=== PATIENT | female | born 1950 | race Caucasian/White ===

== ENCOUNTER 2016-11-07 10:27 | Outpatient (CLI) | payer MEDICARE ==
[2016-11-07 12:07] LABS: #Basophils 0.1 thou/uL (0.0-0.2); #Eosinphils 0.2 thou/uL (0.0-0.7); #Lymphocytes 2.6 thou/uL (1.20-3.40); #Monocytes 0.5 thou/uL (0.11-0.59); #Neutrophils 7.5 thou/uL (1.40-6.50); %Basophils 0.6 % (0.0-1.0); %Eosinophils 1.9 % (0.0-10.0); %Monocytes 4.9 % (0.0-10.0); Hematocrit 44.2 % (36.0-47.0); Red Blood Cell (RBC) Count 4.89 mill/uL (4.20-5.40); White Blood Cell (WBC) Count 10.9 thou/uL (4.8-10.8)
[2016-11-07 12:24] LABS: ALT (SGPT) 27 U/L (0-55); AST (SGOT) 22 U/L (5-34); Alkaline Phosphatase 112 U/L (40-150); Anion Gap 13 mmol/L (10-20); BUN (Urea Nitrogen) 14 mg/dL (9.8-20.1); Bilirubin, Total 0.5 mg/dL (0.2-1.2); Calc. Creatinine Clearance 0 mL/min (70-130); Carbon Dioxide 27 mmol/L (23-31); Chloride 107 mmol/L (98-107); Estimated GFR-MDRD 72; Globulin 3.4 g/dL (2.4-3.5); LDL Cholesterol, Calculated 122 mg/dL; Protein, Total 7.4 g/dL (5.8-8.1)
== END 2016-11-07 10:28 ==
LOC: HPCALD 10:27
PROVIDERS: ATTEND Family Medicine
DX: E78.2 Mixed hyperlipidemia (principal); E03.9 Hypothyroidism, unspecified; I10 Essential (primary) hypertension
CPT/HCPCS: 36415; 80053; 80061; 84443; 85025

== ENCOUNTER 2017-05-09 15:49 | Outpatient (CLI) | payer MEDICARE | END 2017-05-09 15:50 | disposition home or self-care (01) | LOC: HPCALD 15:49 | PROVIDERS: ATTEND Family Medicine | DX: E03.9 Hypothyroidism, unspecified (principal) | CPT/HCPCS: 36415; 84443 ==

== ENCOUNTER 2017-12-29 16:04 | Emergency (ER) | payer MEDICARE ==
[2017-12-29] MEDS ORDERED: methylPREDNISolone Sod Succ/PF 125 MG/2 ML VIAL ONE (16:16)
[2017-12-29 16:35] LABS: pH (venous) 7.23 (7.35-7.45)
[2017-12-29 16:36] LABS: Hemoglobin (Hb) 13.8 g/dL (11.7-16.1)
[2017-12-29 16:40] LABS: #Lymphocytes 1.8 thou/uL (1.20-3.40); #Monocytes 0.6 thou/uL (0.11-0.59); #Neutrophils 5.2 thou/uL (1.40-6.50); %Basophils 0.6 % (0.0-1.0); %Eosinophils 0.4 % (0.0-10.0); %Lymphocytes 23.3 % (21.0-51.0); %Monocytes 7.9 % (0.0-10.0); %Neutrophils 67.9 % (42.0-75.0); Mean Corpuscular Hemoglobin 27.6 pg (27.0-31.0); Mean Platelet Volume 5.6 fL (7.4-10.4); Platelet Count 238 thou/uL (130-400); RBC Distribution Width 15.2 % (11.5-14.5); Red Blood Cell (RBC) Count 4.71 mill/uL (4.20-5.40); White Blood Cell (WBC) Count 7.7 thou/uL (4.8-10.8)
--- NOTE | 2017-12-29 16:47 | RAD ---
PORTABLE CHEST: 12/29/17 An AP portable film at 1609 is compared with a 12/01/17 study. The heart size is unchanged. There is no congestive finding or large pleural effusion. The lungs are clear. The left lung base is difficult to evaluate well due to the portable technique and positioning of the patient. IMPRESSION: No definite acute findings. POS: HOME
[2017-12-29 16:53] LABS: ALT (SGPT) 23 U/L (8-55); AST (SGOT) 35 U/L (5-34); Albumin 3.6 g/dL (3.4-4.8); Alkaline Phosphatase 81 U/L (40-150); Anion Gap 14 mmol/L (10-20); BUN (Urea Nitrogen) 7 mg/dL (9.8-20.1); Bilirubin, Total 0.4 mg/dL (0.2-1.2); Calc. Creatinine Clearance 0 mL/min (70-130); Calcium 8.9 mg/dL (7.8-10.44); Carbon Dioxide 34 mmol/L (23-31); Chloride 99 mmol/L (98-107); Estimated GFR-MDRD 72; Glucose 123 mg/dL (80-115); Potassium 4.6 mmol/L (3.5-5.1); Protein, Total 7.6 g/dL (6.0-8.3); Sodium 142 mmol/L (136-145)
[2017-12-29 16:55] LABS: CKMB 3.7 ng/mL (0-6.6); Troponin I 0.014 ng/mL (< 0.028)
[2017-12-29] MEDS ORDERED: Acetaminophen 500 MG TAB ONE (17:26)
== END 2017-12-29 17:33 | disposition short-term general hospital (02) ==
LOC: BURERS 16:04
DX: J44.1 Chronic obstructive pulmonary disease with (acute) exacerbation (principal); M17.0 Bilateral primary osteoarthritis of knee; M16.10 Unilateral primary osteoarthritis, unspecified hip; I10 Essential (primary) hypertension; Z87.891 Personal history of nicotine dependence; Z79.891 Long term (current) use of opiate analgesic; Z79.899 Other long term (current) drug therapy
CPT/HCPCS: 51701; 71045; 80053; 82553; 82805; 83880; 84484; 85025; 87077; 87086; 87186; 93005; 96365; 96375; A4353; J1956; J2930; J7620

== ENCOUNTER 2018-09-19 13:31 | Inpatient (IN) | payer MEDICARE, MEDICAID ==
[2018-09-19] MEDS ORDERED: PROVENTIL INHALER 6.7 G (200 INHALATIONS) INH PRN (16:27)
[2018-09-19] MEDS ORDERED: Acetaminophen 325 MG TAB PO PRN (16:27)
[2018-09-19] MEDS: HYDROcodone/Acetaminophen 10/325 mg Tablet PO PRN ×2 (18:03→22:09)
[2018-09-19] MEDS ORDERED: Albuterol Sulfate 2.5 mg/3 ml Neb NEB SCH (19:00)
[2018-09-19] MEDS: Ipratropium Bromide 2.5 ml Neb NEB SCH (19:02)
[2018-09-19] MEDS: Mometasone/Formoterol 60 PUFF AER INH SCH (19:05)
[2018-09-19] MEDS: Loratadine 10 MG TAB PO SCH (21:18)
[2018-09-19] MEDS: Levothyroxine Sodium 100 MCG TAB PO SCH (21:18)
[2018-09-19] MEDS: Atorvastatin Calcium 10 MG TAB PO SCH (21:18)
[2018-09-19] MEDS: Aspirin 325 mg Enteric Coated Tablet PO SCH (21:19)
[2018-09-19] MEDS: Docusate 100 MG CAP PO SCH (21:19)
[2018-09-19] MEDS: Diabetic Tussin 200 MG/10 ML UDCUP PO SCH (21:19)
[2018-09-19] MEDS: Albuterol Sulfate 2.5 mg/3 ml Neb NEB SCH (21:20)
--- NOTE | 2018-09-19 23:13 | HP ---
CHIEF COMPLAINT: Status post left total hip arthroplasty with need for physical therapy. HISTORY OF PRESENT ILLNESS: A 67-year-old female had transitioned to our facility to participate with physical therapy status post admission at [facility] for elective left total hip arthroplasty via Dr. Mikal Joe; this procedure was performed on 09/17/2018. The patient is requiring assistance with transfers and has set orthopedic limitations and thus it was decided that she would be better transitioning to retirement facility as a swing patient to participate with physical therapy. She does usually use a walker to aid with ambulation. She reports her pain at present to be 5 to 6 out of 10. Her intake is at baseline. She does report to have constipation with her last bowel movement being 3-4 days ago; she reports to take Colace every other day in her home setting for this issue. She otherwise has no new concerns at this time. She reports that her followup with Dr. Joe is scheduled for 10/01/2018. The patient typically has [facility] for which she will be able to transition when ready. PAST MEDICAL HISTORY: COPD, hypothyroidism, dyslipidemia, hypertension, osteoarthritis. PAST SURGICAL HISTORY: Status post left total hip arthroplasty. FAMILY HISTORY: Noncontributory. SOCIAL HISTORY: She is a former smoker with no EtOH or illicit drug use. REVIEW OF SYSTEMS: GENERAL: The patient denies fever. EAR, NOSE, AND THROAT: Denies sore throat, nasal drainage, or congestion. CARDIOVASCULAR: Denies chest pain or palpitations. RESPIRATORY: Denies shortness of breath or cough. GASTRO: Denies abdominal pain, nausea, vomiting, or diarrhea. She does report to have constipation. GENITOURINARY: Denies dysuria. MUSCULOSKELETAL: Complains of pain to the left hip. DERM: Denies rash. NEURO: Denies headache. LABORATORY DATA: None available. PHYSICAL EXAMINATION: VITAL SIGNS: Temperature is 98.1, pulse is 107, respiratory rate is 18, oxygen is 92% on 2 L, blood pressure is 135/77. GENERAL: The patient is alert and oriented, in no acute distress. She is obese. HEAD, EYES, EARS, NOSE, AND THROAT: Normocephalic and atraumatic. Pupils are equal, round, and reactive to light. Extraocular muscles are intact bilaterally. She has moist mucous membrane. NECK: Supple with no lymphadenopathy. CARDIOVASCULAR: Sinus tachycardia. Normal S1, S2. No murmurs, rubs, or gallops. RESPIRATORY: The patient has nasal cannula in place. She has very faint end-expiratory wheezes with no respiratory distress. GASTROINTESTINAL: Mildly distended, nontender to palpation. No rebound or guarding. EXTREMITIES: No clubbing or cyanosis. She has trace edema to bilateral distal lower extremities. SKIN: She has a well-healing surgical site to the left hip with no extending erythema or drainage. NEUROLOGIC: Nonfocal with cranial nerves 2 through 12 grossly intact. ASSESSMENT AND PLAN: 1. Status post left total hip arthroplasty. The patient is to participate with physical therapy as planned, will resume pain control. She is to follow up with Dr. Mikal Joe on 10/01/2018. 2. Gait instability. The patient typically uses a walker to aid her gait. 3. Chronic obstructive pulmonary disease, oxygen-dependent. We will resume the patient's usual medications for this. 4. Hypertension. The patient is hemodynamically stable with blood pressure at goal. We will resume her home blood pressure medication. 5. Dyslipidemia. The patient is on a statin for this. This will be resumed. 6. Hypothyroidism. We will resume the patient's home levothyroxine dosing. 7. Constipation. I have scheduled Colace and MiraLAX and will plan to resume this and may back off to p.r.n. dosing as her bowel movements dictate. 8. Prophylaxis. The patient has been placed on aspirin 325 mg p.o. b.i.d. per Orthopedics. We will provide Tums for gastrointestinal prophylaxis per the patient's request. 9. Code status is full. 10. Disposition: We will plan for the patient to discharge to her home setting once goals are met per Physical therapy. She has [employer] to help transition when ready to discharge from our facility. Job ID: [id number]
[2018-09-20] MEDS: Ipratropium Bromide 2.5 ml Neb NEB SCH ×4 (00:38→18:35)
[2018-09-20] MEDS: HYDROcodone/Acetaminophen 10/325 mg Tablet PO PRN ×3 (02:18→10:37)
[2018-09-20 05:28] LABS: #Basophils 0.1 thou/uL (0.0-0.2); #Eosinphils 0.2 thou/uL (0.0-0.7); #Lymphocytes 2.8 thou/uL (1.20-3.40); #Monocytes 1.1 thou/uL (0.11-0.59); #Neutrophils 8.6 thou/uL (1.40-6.50); %Basophils 0.5 % (0.0-1.0); %Eosinophils 1.3 % (0.0-10.0); %Lymphocytes 21.8 % (21.0-51.0); %Monocytes 8.6 % (0.0-10.0); %Neutrophils 67.8 % (42.0-75.0); Hemoglobin 8.9 g/dL (12.0-16.0); Mean Corpuscular HGB CONC 30.6 g/dL (32.0-36.0); Mean Corpuscular Hemoglobin 26.6 pg (27.0-31.0); Mean Corpuscular Volume 87.1 fL (78.0-98.0); Platelet Count 248 thou/uL (130-400); RBC Distribution Width 14.5 % (11.5-14.5); Red Blood Cell (RBC) Count 3.35 mill/uL (4.20-5.40); White Blood Cell (WBC) Count 12.7 thou/uL (4.8-10.8)
[2018-09-20 05:40] LABS: ALT (SGPT) 35 U/L (8-55); AST (SGOT) 38 U/L (5-34); Albumin 2.9 g/dL (3.4-4.8); Alkaline Phosphatase 73 U/L (40-150); Anion Gap 10 mmol/L (10-20); BUN (Urea Nitrogen) 11 mg/dL (9.8-20.1); Bilirubin, Total 0.4 mg/dL (0.2-1.2); Calc. Creatinine Clearance 123 mL/min (70-130); Calcium 8.5 mg/dL (7.8-10.44); Carbon Dioxide 35 mmol/L (23-31); Chloride 100 mmol/L (98-107); Estimated GFR-MDRD 85; Glucose 135 mg/dL (80-115); Potassium 3.9 mmol/L (3.5-5.1); Protein, Total 5.9 g/dL (6.0-8.3); Sodium 141 mmol/L (136-145)
[2018-09-20] MEDS: Mometasone/Formoterol 60 PUFF AER INH SCH ×2 (06:20→18:36)
[2018-09-20] MEDS ORDERED: Prevnar 13-Val Conj/PF 0.5 ML SYRINGE IM ONE (09:00)
[2018-09-20] MEDS: Polyethylene Glycol 3350 17 GM Packet PO SCH (09:03)
[2018-09-20] MEDS: Furosemide 40 MG TAB PO SCH (09:03)
[2018-09-20] MEDS: Multivitamin W/ Minerals 1 TAB PO SCH (09:04)
[2018-09-20] MEDS: Aspirin 325 mg Enteric Coated Tablet PO SCH ×2 (09:04→21:39)
[2018-09-20] MEDS: Ascorbic Acid 500 mg Chewable Tablet PO SCH (09:04)
[2018-09-20] MEDS: Docusate 100 MG CAP PO SCH ×2 (09:04→21:39)
[2018-09-20] MEDS: Potassium Chloride 20 MEQ TAB PO SCH (09:04)
[2018-09-20] MEDS: Diabetic Tussin 200 MG/10 ML UDCUP PO SCH (09:05)
[2018-09-20] MEDS: Albuterol Sulfate 2.5 mg/3 ml Neb NEB SCH ×3 (09:13→21:41)
[2018-09-20] MEDS ORDERED: TRAMADOL HCL 300 MG PO SCH (13:00)
[2018-09-20] MEDS: guaiFENesin ER 600 MG TAB PO PRN (21:39)
[2018-09-20] MEDS: Loratadine 10 MG TAB PO SCH (21:39)
[2018-09-20] MEDS: Levothyroxine Sodium 100 MCG TAB PO SCH (21:39)
[2018-09-20] MEDS: Atorvastatin Calcium 10 MG TAB PO SCH (21:39)
[2018-09-21] MEDS: Calcium Carbonate 500 MG ChewTAB PO PRN ×4 (00:20→21:35)
[2018-09-21] MEDS: HYDROcodone/Acetaminophen 10/325 mg Tablet PO PRN ×3 (00:20→21:15)
[2018-09-21] MEDS: Ipratropium Bromide 2.5 ml Neb NEB SCH ×4 (00:29→18:50)
[2018-09-21] MEDS: Mometasone/Formoterol 60 PUFF AER INH SCH ×2 (06:30→18:55)
[2018-09-21] MEDS: Ascorbic Acid 500 mg Chewable Tablet PO SCH (08:47)
[2018-09-21] MEDS: Aspirin 325 mg Enteric Coated Tablet PO SCH ×2 (08:47→21:17)
[2018-09-21] MEDS: Docusate 100 MG CAP PO SCH ×2 (08:48→21:16)
[2018-09-21] MEDS: Furosemide 40 MG TAB PO SCH (08:48)
[2018-09-21] MEDS: Multivitamin W/ Minerals 1 TAB PO SCH (08:49)
[2018-09-21] MEDS: Potassium Chloride 20 MEQ TAB PO SCH (08:50)
[2018-09-21] MEDS: Albuterol Sulfate 2.5 mg/3 ml Neb NEB SCH ×3 (08:57→21:07)
[2018-09-21] MEDS: TRAMADOL HCL 300 MG PO SCH (09:00)
[2018-09-21] MEDS: Polyethylene Glycol 3350 17 GM Packet PO SCH (09:00)
[2018-09-21] MEDS: Atorvastatin Calcium 10 MG TAB PO SCH (21:16)
[2018-09-21] MEDS: Loratadine 10 MG TAB PO SCH (21:16)
[2018-09-21] MEDS: guaiFENesin ER 600 MG TAB PO PRN (21:16)
[2018-09-21] MEDS: Levothyroxine Sodium 100 MCG TAB PO SCH (21:17)
[2018-09-22] MEDS: Ipratropium Bromide 2.5 ml Neb NEB SCH ×4 (01:13→18:39)
[2018-09-22] MEDS: Mometasone/Formoterol 60 PUFF AER INH SCH ×2 (06:15→18:35)
[2018-09-22] MEDS: TRAMADOL HCL 300 MG PO SCH (08:30)
[2018-09-22] MEDS: Multivitamin W/ Minerals 1 TAB PO SCH (08:42)
[2018-09-22] MEDS: Potassium Chloride 20 MEQ TAB PO SCH (08:42)
[2018-09-22] MEDS: Furosemide 40 MG TAB PO SCH (08:42)
[2018-09-22] MEDS: Ascorbic Acid 500 mg Chewable Tablet PO SCH (08:43)
[2018-09-22] MEDS: Aspirin 325 mg Enteric Coated Tablet PO SCH ×2 (08:43→21:03)
[2018-09-22] MEDS: Docusate 100 MG CAP PO SCH ×2 (08:43→21:03)
[2018-09-22] MEDS: Albuterol Sulfate 2.5 mg/3 ml Neb NEB SCH ×3 (08:45→21:04)
[2018-09-22] MEDS: Polyethylene Glycol 3350 17 GM Packet PO SCH (09:20)
[2018-09-22] MEDS: Calcium Carbonate 500 MG ChewTAB PO PRN (11:03)
[2018-09-22] MEDS: HYDROcodone/Acetaminophen 10/325 mg Tablet PO PRN ×2 (13:49→23:54)
[2018-09-22] MEDS: Atorvastatin Calcium 10 MG TAB PO SCH (21:03)
[2018-09-22] MEDS: Levothyroxine Sodium 100 MCG TAB PO SCH (21:03)
[2018-09-22] MEDS: Loratadine 10 MG TAB PO SCH (21:03)
[2018-09-22] MEDS: guaiFENesin ER 600 MG TAB PO PRN (21:03)
[2018-09-23] MEDS: Ipratropium Bromide 2.5 ml Neb NEB SCH ×4 (00:18→18:22)
[2018-09-23] MEDS: Mometasone/Formoterol 60 PUFF AER INH SCH ×2 (06:44→18:21)
[2018-09-23] MEDS: Albuterol Sulfate 2.5 mg/3 ml Neb NEB SCH ×3 (08:49→21:01)
[2018-09-23] MEDS: Furosemide 40 MG TAB PO SCH (08:51)
[2018-09-23] MEDS: Multivitamin W/ Minerals 1 TAB PO SCH (08:51)
[2018-09-23] MEDS: Ascorbic Acid 500 mg Chewable Tablet PO SCH (08:52)
[2018-09-23] MEDS: Polyethylene Glycol 3350 17 GM Packet PO SCH (08:52)
[2018-09-23] MEDS: Aspirin 325 mg Enteric Coated Tablet PO SCH ×2 (08:52→21:02)
[2018-09-23] MEDS: Potassium Chloride 20 MEQ TAB PO SCH (08:52)
[2018-09-23] MEDS: TRAMADOL HCL 300 MG PO SCH (09:07)
[2018-09-23] MEDS: Docusate 100 MG CAP PO SCH ×3 (11:36→21:03)
[2018-09-23] MEDS: HYDROcodone/Acetaminophen 10/325 mg Tablet PO PRN ×2 (13:05→21:17)
[2018-09-23] MEDS: Atorvastatin Calcium 10 MG TAB PO SCH (21:02)
[2018-09-23] MEDS: Loratadine 10 MG TAB PO SCH (21:02)
[2018-09-23] MEDS: guaiFENesin ER 600 MG TAB PO PRN (21:02)
[2018-09-23] MEDS: Levothyroxine Sodium 100 MCG TAB PO SCH (21:02)
[2018-09-24] MEDS: Ipratropium Bromide 2.5 ml Neb NEB SCH ×4 (00:47→18:39)
[2018-09-24] MEDS: HYDROcodone/Acetaminophen 10/325 mg Tablet PO PRN ×3 (03:50→22:01)
[2018-09-24 04:50] LABS: #Basophils 0.1 thou/uL (0.0-0.2); #Eosinphils 0.4 thou/uL (0.0-0.7); #Lymphocytes 2.9 thou/uL (1.20-3.40); #Monocytes 1.1 thou/uL (0.11-0.59); #Neutrophils 10.1 thou/uL (1.40-6.50); %Basophils 0.7 % (0.0-1.0); %Eosinophils 2.5 % (0.0-10.0); %Lymphocytes 19.8 % (21.0-51.0); %Monocytes 7.3 % (0.0-10.0); %Neutrophils 69.9 % (42.0-75.0); Hemoglobin 9.1 g/dL (12.0-16.0); Mean Corpuscular HGB CONC 32.4 g/dL (32.0-36.0); Mean Corpuscular Hemoglobin 28.2 pg (27.0-31.0); Mean Corpuscular Volume 86.8 fL (78.0-98.0); Mean Platelet Volume 5.8 fL (7.4-10.4); Platelet Count 336 thou/uL (130-400); RBC Distribution Width 15.1 % (11.5-14.5); Red Blood Cell (RBC) Count 3.21 mill/uL (4.20-5.40); White Blood Cell (WBC) Count 14.5 thou/uL (4.8-10.8)
[2018-09-24 05:04] LABS: ALT (SGPT) 33 U/L (8-55); AST (SGOT) 32 U/L (5-34); Albumin 3.2 g/dL (3.4-4.8); Alkaline Phosphatase 86 U/L (40-150); Anion Gap 13 mmol/L (10-20); BUN (Urea Nitrogen) 14 mg/dL (9.8-20.1); Bilirubin, Total 0.5 mg/dL (0.2-1.2); Calc. Creatinine Clearance 111 mL/min (70-130); Calcium 8.9 mg/dL (7.8-10.44); Carbon Dioxide 34 mmol/L (23-31); Chloride 96 mmol/L (98-107); Estimated GFR-MDRD 71; Globulin 3.3 g/dL (2.4-3.5); Glucose 112 mg/dL (80-115); Potassium 3.8 mmol/L (3.5-5.1); Protein, Total 6.5 g/dL (6.0-8.3); Sodium 139 mmol/L (136-145)
[2018-09-24] MEDS: Mometasone/Formoterol 60 PUFF AER INH SCH ×2 (06:21→18:37)
[2018-09-24] MEDS: Albuterol Sulfate 2.5 mg/3 ml Neb NEB SCH ×3 (08:57→21:40)
[2018-09-24] MEDS: Furosemide 40 MG TAB PO SCH (09:04)
[2018-09-24] MEDS: Ascorbic Acid 500 mg Chewable Tablet PO SCH (09:05)
[2018-09-24] MEDS: Multivitamin W/ Minerals 1 TAB PO SCH (09:05)
[2018-09-24] MEDS: Aspirin 325 mg Enteric Coated Tablet PO SCH ×2 (09:05→21:39)
[2018-09-24] MEDS: Docusate 100 MG CAP PO SCH ×2 (09:05→21:39)
[2018-09-24] MEDS: Potassium Chloride 20 MEQ TAB PO SCH (09:05)
[2018-09-24] MEDS: TRAMADOL HCL 300 MG PO SCH (09:10)
[2018-09-24] MEDS: Polyethylene Glycol 3350 17 GM Packet PO SCH (09:36)
[2018-09-24] MEDS: Levothyroxine Sodium 100 MCG TAB PO SCH (21:39)
[2018-09-24] MEDS: Atorvastatin Calcium 10 MG TAB PO SCH (21:39)
[2018-09-24] MEDS: guaiFENesin ER 600 MG TAB PO PRN (21:39)
[2018-09-24] MEDS: Loratadine 10 MG TAB PO SCH (21:40)
[2018-09-25] MEDS: Ipratropium Bromide 2.5 ml Neb NEB SCH ×4 (00:52→18:40)
[2018-09-25] MEDS: HYDROcodone/Acetaminophen 10/325 mg Tablet PO PRN ×4 (03:20→18:36)
[2018-09-25] MEDS: Mometasone/Formoterol 60 PUFF AER INH SCH ×2 (06:23→18:39)
[2018-09-25] MEDS: TRAMADOL HCL 300 MG PO SCH (09:26)
[2018-09-25] MEDS: Multivitamin W/ Minerals 1 TAB PO SCH (09:27)
[2018-09-25] MEDS: Furosemide 40 MG TAB PO SCH (09:27)
[2018-09-25] MEDS: Ascorbic Acid 500 mg Chewable Tablet PO SCH (09:27)
[2018-09-25] MEDS: Docusate 100 MG CAP PO SCH ×2 (09:28→22:28)
[2018-09-25] MEDS: Potassium Chloride 20 MEQ TAB PO SCH (09:29)
[2018-09-25] MEDS: Aspirin 325 mg Enteric Coated Tablet PO SCH ×2 (09:29→22:29)
[2018-09-25] MEDS: Polyethylene Glycol 3350 17 GM Packet PO SCH (09:31)
[2018-09-25] MEDS: Albuterol Sulfate 2.5 mg/3 ml Neb NEB SCH ×3 (09:33→22:29)
[2018-09-25] MEDS: Loratadine 10 MG TAB PO SCH (22:28)
[2018-09-25] MEDS: guaiFENesin ER 600 MG TAB PO PRN (22:28)
[2018-09-25] MEDS: Atorvastatin Calcium 10 MG TAB PO SCH (22:28)
[2018-09-25] MEDS: Levothyroxine Sodium 100 MCG TAB PO SCH (22:29)
[2018-09-26] MEDS: Ipratropium Bromide 2.5 ml Neb NEB SCH ×4 (01:45→18:53)
[2018-09-26] MEDS: HYDROcodone/Acetaminophen 10/325 mg Tablet PO PRN ×3 (01:56→20:07)
[2018-09-26] MEDS: Mometasone/Formoterol 60 PUFF AER INH SCH ×2 (06:33→18:55)
[2018-09-26] MEDS: Docusate 100 MG CAP PO SCH ×2 (09:06→20:11)
[2018-09-26] MEDS: Furosemide 40 MG TAB PO SCH (09:06)
[2018-09-26] MEDS: Multivitamin W/ Minerals 1 TAB PO SCH (09:07)
[2018-09-26] MEDS: Aspirin 325 mg Enteric Coated Tablet PO SCH ×2 (09:07→20:11)
[2018-09-26] MEDS: Potassium Chloride 20 MEQ TAB PO SCH (09:08)
[2018-09-26] MEDS: Polyethylene Glycol 3350 17 GM Packet PO SCH (09:08)
[2018-09-26] MEDS: Ascorbic Acid 500 mg Chewable Tablet PO SCH (09:08)
[2018-09-26] MEDS: Albuterol Sulfate 2.5 mg/3 ml Neb NEB SCH ×3 (09:10→20:11)
[2018-09-26] MEDS: TRAMADOL HCL 300 MG PO SCH (09:19)
[2018-09-26] MEDS: Atorvastatin Calcium 10 MG TAB PO SCH (20:11)
[2018-09-26] MEDS: Loratadine 10 MG TAB PO SCH (20:11)
[2018-09-26] MEDS: Levothyroxine Sodium 100 MCG TAB PO SCH (20:11)
[2018-09-27] MEDS: Ipratropium Bromide 2.5 ml Neb NEB SCH ×4 (01:05→19:03)
[2018-09-27] MEDS: HYDROcodone/Acetaminophen 10/325 mg Tablet PO PRN ×3 (03:37→20:41)
[2018-09-27] MEDS: Mometasone/Formoterol 60 PUFF AER INH SCH ×2 (06:19→19:05)
[2018-09-27] MEDS: Furosemide 40 MG TAB PO SCH (08:45)
[2018-09-27] MEDS: Potassium Chloride 20 MEQ TAB PO SCH (08:45)
[2018-09-27] MEDS: Aspirin 325 mg Enteric Coated Tablet PO SCH ×2 (08:45→20:44)
[2018-09-27] MEDS: Docusate 100 MG CAP PO SCH ×2 (08:46→20:44)
[2018-09-27] MEDS: Multivitamin W/ Minerals 1 TAB PO SCH (08:46)
[2018-09-27] MEDS: Polyethylene Glycol 3350 17 GM Packet PO SCH (08:46)
[2018-09-27] MEDS: Ascorbic Acid 500 mg Chewable Tablet PO SCH (08:46)
[2018-09-27] MEDS: TRAMADOL HCL 300 MG PO SCH (08:51)
[2018-09-27] MEDS: Albuterol Sulfate 2.5 mg/3 ml Neb NEB SCH ×3 (08:53→20:44)
[2018-09-27] MEDS: Levothyroxine Sodium 100 MCG TAB PO SCH (20:44)
[2018-09-27] MEDS: Atorvastatin Calcium 10 MG TAB PO SCH (20:44)
[2018-09-27] MEDS: Loratadine 10 MG TAB PO SCH (20:44)
[2018-09-28] MEDS: Ipratropium Bromide 2.5 ml Neb NEB SCH ×4 (01:23→18:56)
[2018-09-28] MEDS: HYDROcodone/Acetaminophen 10/325 mg Tablet PO PRN ×3 (04:08→21:00)
[2018-09-28] MEDS: Mometasone/Formoterol 60 PUFF AER INH SCH ×2 (06:42→18:54)
[2018-09-28] MEDS: TRAMADOL HCL 300 MG PO SCH (10:11)
[2018-09-28] MEDS: Polyethylene Glycol 3350 17 GM Packet PO SCH (10:13)
[2018-09-28] MEDS: Furosemide 40 MG TAB PO SCH (10:13)
[2018-09-28] MEDS: Aspirin 325 mg Enteric Coated Tablet PO SCH ×2 (10:14→20:56)
[2018-09-28] MEDS: Potassium Chloride 20 MEQ TAB PO SCH (10:14)
[2018-09-28] MEDS: Docusate 100 MG CAP PO SCH ×2 (10:15→20:55)
[2018-09-28] MEDS: Ascorbic Acid 500 mg Chewable Tablet PO SCH (10:15)
[2018-09-28] MEDS: Multivitamin W/ Minerals 1 TAB PO SCH (10:15)
[2018-09-28] MEDS: Albuterol Sulfate 2.5 mg/3 ml Neb NEB SCH ×3 (11:33→20:54)
[2018-09-28 13:28] VITALS: BMI 39.3
[2018-09-28] MEDS ORDERED: Furosemide 20 MG TAB PO SCH (14:00)
[2018-09-28] MEDS: Levothyroxine Sodium 100 MCG TAB PO SCH (20:55)
[2018-09-28] MEDS: Loratadine 10 MG TAB PO SCH (20:56)
[2018-09-28] MEDS: Atorvastatin Calcium 10 MG TAB PO SCH (20:56)
[2018-09-29] MEDS: Ipratropium Bromide 2.5 ml Neb NEB SCH ×4 (01:58→18:54)
[2018-09-29] MEDS: HYDROcodone/Acetaminophen 10/325 mg Tablet PO PRN ×4 (03:49→22:17)
[2018-09-29] MEDS: Mometasone/Formoterol 60 PUFF AER INH SCH ×2 (06:29→18:52)
[2018-09-29] MEDS: TRAMADOL HCL 300 MG PO SCH (08:55)
[2018-09-29] MEDS: Docusate 100 MG CAP PO SCH ×2 (08:57→21:38)
[2018-09-29] MEDS: Ascorbic Acid 500 mg Chewable Tablet PO SCH (08:57)
[2018-09-29] MEDS: Potassium Chloride 20 MEQ TAB PO SCH (08:57)
[2018-09-29] MEDS: Multivitamin W/ Minerals 1 TAB PO SCH (08:57)
[2018-09-29] MEDS: Furosemide 40 MG TAB PO SCH (08:57)
[2018-09-29] MEDS: Aspirin 325 mg Enteric Coated Tablet PO SCH ×2 (08:58→21:38)
[2018-09-29] MEDS: Albuterol Sulfate 2.5 mg/3 ml Neb NEB SCH ×3 (08:58→21:39)
[2018-09-29] MEDS: Polyethylene Glycol 3350 17 GM Packet PO SCH (08:58)
[2018-09-29] MEDS: Atorvastatin Calcium 10 MG TAB PO SCH (21:38)
[2018-09-29] MEDS: Levothyroxine Sodium 100 MCG TAB PO SCH (21:38)
[2018-09-29] MEDS: Loratadine 10 MG TAB PO SCH (21:38)
[2018-09-30] MEDS: Ipratropium Bromide 2.5 ml Neb NEB SCH ×3 (00:53→14:05)
[2018-09-30] MEDS: HYDROcodone/Acetaminophen 10/325 mg Tablet PO PRN ×3 (05:53→21:11)
[2018-09-30] MEDS: Mometasone/Formoterol 60 PUFF AER INH SCH ×2 (05:54→17:41)
[2018-09-30] MEDS: Furosemide 40 MG TAB PO SCH (08:21)
[2018-09-30] MEDS: Multivitamin W/ Minerals 1 TAB PO SCH (08:22)
[2018-09-30] MEDS: Aspirin 325 mg Enteric Coated Tablet PO SCH ×2 (08:22→21:13)
[2018-09-30] MEDS: Potassium Chloride 20 MEQ TAB PO SCH (08:23)
[2018-09-30] MEDS: Polyethylene Glycol 3350 17 GM Packet PO SCH (08:23)
[2018-09-30] MEDS: Ascorbic Acid 500 mg Chewable Tablet PO SCH (08:23)
[2018-09-30] MEDS: Albuterol Sulfate 2.5 mg/3 ml Neb NEB SCH ×2 (08:23→15:12)
[2018-09-30] MEDS: Docusate 100 MG CAP PO SCH ×2 (08:23→21:13)
[2018-09-30] MEDS: TRAMADOL HCL 300 MG PO SCH (08:27)
[2018-09-30] MEDS: Loratadine 10 MG TAB PO SCH (21:13)
[2018-09-30] MEDS: Atorvastatin Calcium 10 MG TAB PO SCH (21:13)
[2018-09-30] MEDS: Levothyroxine Sodium 100 MCG TAB PO SCH (21:13)
[2018-10-01] MEDS: HYDROcodone/Acetaminophen 10/325 mg Tablet PO PRN ×3 (05:07→22:43)
[2018-10-01] MEDS: Mometasone/Formoterol 60 PUFF AER INH SCH ×2 (05:10→18:00)
[2018-10-01 05:27] LABS: #Basophils 0.1 thou/uL (0.0-0.2); #Eosinphils 0.3 thou/uL (0.0-0.7); #Lymphocytes 2.4 thou/uL (1.20-3.40); #Monocytes 0.8 thou/uL (0.11-0.59); #Neutrophils 9.4 thou/uL (1.40-6.50); %Basophils 0.6 % (0.0-1.0); %Eosinophils 2.7 % (0.0-10.0); %Lymphocytes 18.3 % (21.0-51.0); %Monocytes 5.9 % (0.0-10.0); %Neutrophils 72.6 % (42.0-75.0); Hemoglobin 8.9 g/dL (12.0-16.0); Mean Corpuscular HGB CONC 31.3 g/dL (32.0-36.0); Mean Corpuscular Volume 86.1 fL (78.0-98.0); Mean Platelet Volume 5.3 fL (7.4-10.4); Platelet Count 409 thou/uL (130-400); Red Blood Cell (RBC) Count 3.32 mill/uL (4.20-5.40); White Blood Cell (WBC) Count 12.9 thou/uL (4.8-10.8)
[2018-10-01 05:39] LABS: ALT (SGPT) 24 U/L (8-55); AST (SGOT) 23 U/L (5-34); Albumin 3.2 g/dL (3.4-4.8); Alkaline Phosphatase 106 U/L (40-150); Anion Gap 12 mmol/L (10-20); BUN (Urea Nitrogen) 13 mg/dL (9.8-20.1); Bilirubin, Total 0.3 mg/dL (0.2-1.2); Calc. Creatinine Clearance 115 mL/min (70-130); Calcium 9.1 mg/dL (7.8-10.44); Carbon Dioxide 32 mmol/L (23-31); Chloride 100 mmol/L (98-107); Estimated GFR-MDRD 75; Globulin 3.5 g/dL (2.4-3.5); Glucose 112 mg/dL (80-115); Potassium 4.3 mmol/L (3.5-5.1); Protein, Total 6.7 g/dL (6.0-8.3); Sodium 140 mmol/L (136-145)
[2018-10-01] MEDS: Potassium Chloride 20 MEQ TAB PO SCH (08:06)
[2018-10-01] MEDS: TRAMADOL HCL 300 MG PO SCH (08:42)
[2018-10-01] MEDS: Aspirin 325 mg Enteric Coated Tablet PO SCH ×2 (08:43→21:02)
[2018-10-01] MEDS: Ascorbic Acid 500 mg Chewable Tablet PO SCH (08:43)
[2018-10-01] MEDS: Multivitamin W/ Minerals 1 TAB PO SCH (08:43)
[2018-10-01] MEDS: Docusate 100 MG CAP PO SCH ×2 (08:44→21:02)
[2018-10-01] MEDS: Polyethylene Glycol 3350 17 GM Packet PO SCH (08:44)
[2018-10-01] MEDS: Furosemide 40 MG TAB PO SCH (13:08)
[2018-10-01] MEDS ORDERED: Docusate 100 MG CAP PO PRN (13:26)
[2018-10-01] MEDS ORDERED: tiZANidine HCl 4 MG TAB PO PRN (13:29)
[2018-10-01] MEDS: Loratadine 10 MG TAB PO SCH (21:02)
[2018-10-01] MEDS: Atorvastatin Calcium 10 MG TAB PO SCH (21:02)
[2018-10-01] MEDS: Levothyroxine Sodium 100 MCG TAB PO SCH (21:02)
[2018-10-01] MEDS: tiZANidine HCl 4 MG TAB PO PRN (22:45)
[2018-10-02] MEDS: Mometasone/Formoterol 60 PUFF AER INH SCH ×2 (05:02→17:36)
[2018-10-02] MEDS: tiZANidine HCl 4 MG TAB PO PRN ×3 (05:11→20:14)
[2018-10-02] MEDS: HYDROcodone/Acetaminophen 10/325 mg Tablet PO PRN ×3 (05:11→20:14)
[2018-10-02] MEDS ORDERED: tiZANidine HCl 4 MG TAB PO PRN (06:04)
[2018-10-02] MEDS: Polyethylene Glycol 3350 17 GM Packet PO SCH (08:55)
[2018-10-02] MEDS: Potassium Chloride 20 MEQ TAB PO SCH (08:56)
[2018-10-02] MEDS: Ascorbic Acid 500 mg Chewable Tablet PO SCH (08:56)
[2018-10-02] MEDS: Ferrous Sulfate 325 MG TAB PO SCH (08:56)
[2018-10-02] MEDS: Furosemide 40 MG TAB PO SCH (08:56)
[2018-10-02] MEDS: Docusate 100 MG CAP PO SCH ×2 (08:57→20:16)
[2018-10-02] MEDS: Aspirin 325 mg Enteric Coated Tablet PO SCH ×2 (08:57→20:16)
[2018-10-02] MEDS: Multivitamin W/ Minerals 1 TAB PO SCH (08:57)
[2018-10-02] MEDS: TRAMADOL HCL 300 MG PO SCH (09:16)
[2018-10-02] MEDS: Atorvastatin Calcium 10 MG TAB PO SCH (20:14)
[2018-10-02] MEDS: Levothyroxine Sodium 100 MCG TAB PO SCH (20:14)
[2018-10-02] MEDS: Loratadine 10 MG TAB PO SCH (20:16)
[2018-10-03] MEDS: HYDROcodone/Acetaminophen 10/325 mg Tablet PO PRN ×3 (04:22→21:14)
[2018-10-03] MEDS: tiZANidine HCl 4 MG TAB PO PRN ×3 (04:22→21:14)
[2018-10-03] MEDS: Mometasone/Formoterol 60 PUFF AER INH SCH ×2 (04:35→17:37)
[2018-10-03] MEDS: Potassium Chloride 20 MEQ TAB PO SCH (09:03)
[2018-10-03] MEDS: Ascorbic Acid 500 mg Chewable Tablet PO SCH (09:04)
[2018-10-03] MEDS: Furosemide 40 MG TAB PO SCH (09:04)
[2018-10-03] MEDS: Aspirin 325 mg Enteric Coated Tablet PO SCH ×2 (09:05→21:14)
[2018-10-03] MEDS: Multivitamin W/ Minerals 1 TAB PO SCH (09:05)
[2018-10-03] MEDS: Docusate 100 MG CAP PO SCH ×2 (09:05→21:13)
[2018-10-03] MEDS: Ferrous Sulfate 325 MG TAB PO SCH (09:05)
[2018-10-03] MEDS: Polyethylene Glycol 3350 17 GM Packet PO SCH (09:05)
[2018-10-03] MEDS: TRAMADOL HCL 300 MG PO SCH (09:06)
[2018-10-03] MEDS: Loratadine 10 MG TAB PO SCH (21:13)
[2018-10-03] MEDS: Atorvastatin Calcium 10 MG TAB PO SCH (21:14)
[2018-10-03] MEDS: Levothyroxine Sodium 100 MCG TAB PO SCH (21:14)
[2018-10-04] MEDS: Mometasone/Formoterol 60 PUFF AER INH SCH ×2 (05:02→17:16)
[2018-10-04] MEDS: HYDROcodone/Acetaminophen 10/325 mg Tablet PO PRN ×3 (06:09→21:34)
[2018-10-04] MEDS: tiZANidine HCl 4 MG TAB PO PRN (06:10)
[2018-10-04] MEDS: TRAMADOL HCL 300 MG PO SCH (09:40)
[2018-10-04] MEDS: Polyethylene Glycol 3350 17 GM Packet PO SCH (09:41)
[2018-10-04] MEDS: Ferrous Sulfate 325 MG TAB PO SCH (09:42)
[2018-10-04] MEDS: Ascorbic Acid 500 mg Chewable Tablet PO SCH (09:42)
[2018-10-04] MEDS: Potassium Chloride 20 MEQ TAB PO SCH (09:42)
[2018-10-04] MEDS: Furosemide 40 MG TAB PO SCH (09:42)
[2018-10-04] MEDS: Multivitamin W/ Minerals 1 TAB PO SCH (09:42)
[2018-10-04] MEDS: Docusate 100 MG CAP PO SCH ×2 (09:43→21:34)
[2018-10-04] MEDS: Aspirin 325 mg Enteric Coated Tablet PO SCH ×2 (09:43→21:35)
[2018-10-04] MEDS: Levothyroxine Sodium 100 MCG TAB PO SCH (21:33)
[2018-10-04] MEDS: Atorvastatin Calcium 10 MG TAB PO SCH (21:34)
[2018-10-04] MEDS: Loratadine 10 MG TAB PO SCH (21:35)
[2018-10-05] MEDS: Mometasone/Formoterol 60 PUFF AER INH SCH ×2 (05:34→18:05)
[2018-10-05] MEDS: HYDROcodone/Acetaminophen 10/325 mg Tablet PO PRN ×3 (05:39→21:52)
[2018-10-05] MEDS: tiZANidine HCl 4 MG TAB PO PRN ×3 (05:40→21:53)
[2018-10-05] MEDS: Furosemide 40 MG TAB PO SCH (09:02)
[2018-10-05] MEDS: Polyethylene Glycol 3350 17 GM Packet PO SCH (09:02)
[2018-10-05] MEDS: Ferrous Sulfate 325 MG TAB PO SCH (09:04)
[2018-10-05] MEDS: Docusate 100 MG CAP PO SCH ×2 (09:04→21:53)
[2018-10-05] MEDS: Ascorbic Acid 500 mg Chewable Tablet PO SCH (09:04)
[2018-10-05] MEDS: TRAMADOL HCL 300 MG PO SCH (09:04)
[2018-10-05] MEDS: Multivitamin W/ Minerals 1 TAB PO SCH (09:04)
[2018-10-05] MEDS: Potassium Chloride 20 MEQ TAB PO SCH (09:04)
[2018-10-05] MEDS: Aspirin 325 mg Enteric Coated Tablet PO SCH ×2 (09:04→21:53)
[2018-10-05] MEDS: Loratadine 10 MG TAB PO SCH (21:53)
[2018-10-05] MEDS: Levothyroxine Sodium 100 MCG TAB PO SCH (21:53)
[2018-10-05] MEDS: Atorvastatin Calcium 10 MG TAB PO SCH (22:11)
[2018-10-05] MEDS ORDERED: Atorvastatin Calcium 10 MG TAB PO SCH (22:15)
[2018-10-06] MEDS: Mometasone/Formoterol 60 PUFF AER INH SCH ×2 (05:29→17:54)
[2018-10-06] MEDS: HYDROcodone/Acetaminophen 10/325 mg Tablet PO PRN ×3 (05:44→22:01)
[2018-10-06] MEDS: tiZANidine HCl 4 MG TAB PO PRN ×3 (05:44→22:00)
[2018-10-06] MEDS: Furosemide 40 MG TAB PO SCH (10:18)
[2018-10-06] MEDS: Potassium Chloride 20 MEQ TAB PO SCH (10:19)
[2018-10-06] MEDS: Aspirin 325 mg Enteric Coated Tablet PO SCH ×2 (10:19→21:51)
[2018-10-06] MEDS: Multivitamin W/ Minerals 1 TAB PO SCH (10:20)
[2018-10-06] MEDS: Ferrous Sulfate 325 MG TAB PO SCH (10:20)
[2018-10-06] MEDS: Ascorbic Acid 500 mg Chewable Tablet PO SCH (10:20)
[2018-10-06] MEDS: Polyethylene Glycol 3350 17 GM Packet PO SCH (10:21)
[2018-10-06] MEDS: Docusate 100 MG CAP PO SCH ×2 (10:21→21:50)
[2018-10-06] MEDS: TRAMADOL HCL 300 MG PO SCH (10:26)
[2018-10-06] MEDS: Loratadine 10 MG TAB PO SCH (21:50)
[2018-10-06] MEDS: Levothyroxine Sodium 100 MCG TAB PO SCH (21:51)
[2018-10-06] MEDS: Atorvastatin Calcium 10 MG TAB PO SCH (22:00)
[2018-10-07] MEDS: Mometasone/Formoterol 60 PUFF AER INH SCH ×2 (05:19→18:14)
[2018-10-07] MEDS: HYDROcodone/Acetaminophen 10/325 mg Tablet PO PRN ×3 (05:23→20:51)
[2018-10-07] MEDS: tiZANidine HCl 4 MG TAB PO PRN ×3 (05:23→20:50)
[2018-10-07] MEDS: Ferrous Sulfate 325 MG TAB PO SCH (08:56)
[2018-10-07] MEDS: Potassium Chloride 20 MEQ TAB PO SCH (08:56)
[2018-10-07] MEDS: Aspirin 325 mg Enteric Coated Tablet PO SCH ×2 (08:57→20:50)
[2018-10-07] MEDS: Furosemide 40 MG TAB PO SCH (08:57)
[2018-10-07] MEDS: Polyethylene Glycol 3350 17 GM Packet PO SCH (08:57)
[2018-10-07] MEDS: Multivitamin W/ Minerals 1 TAB PO SCH (08:57)
[2018-10-07] MEDS: Ascorbic Acid 500 mg Chewable Tablet PO SCH (08:58)
[2018-10-07] MEDS: Docusate 100 MG CAP PO SCH ×2 (08:58→20:50)
[2018-10-07] MEDS: TRAMADOL HCL 300 MG PO SCH (08:58)
[2018-10-07] MEDS: Levothyroxine Sodium 100 MCG TAB PO SCH (20:50)
[2018-10-07] MEDS: Atorvastatin Calcium 10 MG TAB PO SCH (20:50)
[2018-10-07] MEDS: Loratadine 10 MG TAB PO SCH (20:50)
[2018-10-08] MEDS ORDERED: HYDROcodone/Acetaminophen 10/325 mg Tablet ONE (03:43)
[2018-10-08] MEDS: tiZANidine HCl 4 MG TAB PO PRN ×2 (03:46→10:28)
[2018-10-08] MEDS: HYDROcodone/Acetaminophen 10/325 mg Tablet PO PRN (03:46)
[2018-10-08] MEDS: Mometasone/Formoterol 60 PUFF AER INH SCH (05:35)
[2018-10-08 06:54] VITALS: BP 99/50; TEMP 98.3
[2018-10-08] MEDS: Ferrous Sulfate 325 MG TAB PO SCH (08:48)
[2018-10-08] MEDS: Potassium Chloride 20 MEQ TAB PO SCH (08:49)
[2018-10-08] MEDS: Polyethylene Glycol 3350 17 GM Packet PO SCH (09:20)
[2018-10-08] MEDS: Aspirin 325 mg Enteric Coated Tablet PO SCH (09:21)
[2018-10-08] MEDS: Docusate 100 MG CAP PO SCH (09:21)
[2018-10-08] MEDS: Multivitamin W/ Minerals 1 TAB PO SCH (09:21)
[2018-10-08] MEDS: Ascorbic Acid 500 mg Chewable Tablet PO SCH (09:21)
[2018-10-08] MEDS: TRAMADOL HCL 300 MG PO SCH (09:22)
[2018-10-08] MEDS: Furosemide 40 MG TAB PO SCH (09:27)
== END 2018-10-08 12:45 | disposition home health service (06) | DRG 561 ==
LOC: BURMED 15:15
PROVIDERS: ADMIT Family Medicine; ATTEND Family Medicine
DX: Z47.1 Aftercare following joint replacement surgery (principal); R26.89 Other abnormalities of gait and mobility; J44.9 Chronic obstructive pulmonary disease, unspecified; I10 Essential (primary) hypertension; E78.5 Hyperlipidemia, unspecified; E03.9 Hypothyroidism, unspecified; K59.00 Constipation, unspecified; M19.90 Unspecified osteoarthritis, unspecified site; Z96.642 Presence of left artificial hip joint; Z99.81 Dependence on supplemental oxygen; Z87.891 Personal history of nicotine dependence
CPT/HCPCS: 36415; 80053; 85025; 90471; 90670; 94640; 94664; G0009; J7611; J7620